=== PATIENT | female | born 1960 | race Caucasian/White ===

== ENCOUNTER 2018-11-16 07:35 | Inpatient (IN) | payer OTHER ==
[~2018-11-16] VITALS: Ht 147.3 cm; Wt 51.9 kg
[2018-11-16] VITALS (19 sets, daily range): BP systolic 16–113; BP diastolic 53–77; PULSE 62–77; RESP 11–19; Ht 147.3 cm; Wt 51.9 kg
[~2018-11-16 07:35] MED LIST: ASPI-1044 PO; ASPI-903 PO; CITA40TA6 PO; CLOP75TA28 PO; LEVO88TA3 PO; MAGN400T27 PO; TOPI25TA10 PO
[2018-11-16] MEDS ORDERED: DIAZEPAM 5 MG TAB PO PRN (09:06)
[2018-11-16] MEDS ORDERED: DIPHENHYDRAMINE 50 MG CAP PO PRN (09:07)
[2018-11-16] MEDS ORDERED: FAMOTIDINE 20 MG TAB PO PRN (09:07)
[2018-11-16] MEDS ORDERED: SOD CHLORIDE 0.45% 1,000 ML IV SCH (09:30)
[2018-11-16] MEDS ORDERED: FENTAnyl 50 MCG/ML VIAL ONE (09:31)
[2018-11-16] MEDS ORDERED: HEPARIN 1000 UNITS/ML 10 ML INJ ONE (09:31)
[2018-11-16] MEDS ORDERED: IODIXANOL LOCM 100 ML BTL ONE (09:31)
[2018-11-16] MEDS ORDERED: LIDOCAINE 1% (MDV) 20 ML INJ ONE (09:31)
[2018-11-16] MEDS ORDERED: MIDAZOLAM 1 MG/ML 2 ML INJ ONE (09:31)
[2018-11-16] MEDS ORDERED: VERAPAMIL 5 MG INJ ONE (09:32)
--- NOTE | 2018-11-16 10:29 | RADRPT ---
Vent Rate: 60 bpm RR Interval: 1008 msec SD Interval: 168 msec QRS Duration: 80 msec QT Interval: 427 msec QTC Interval: 425 msec P-R-T [place]: 44 - 68 - 65 degrees Sinus rhythm...normal P axis, V-rate 50- 99 Electronically Signed By: Clyde Alberts
[2018-11-16] MEDS ORDERED: BIVALIRUDIN 250MG /NS 50 ML 50 ML IVPB ONE (11:01)
[2018-11-16] MEDS ORDERED: ASPIRIN 325 MG TAB ONE (11:06)
[2018-11-16] MEDS ORDERED: CLOPIDOGREL 300 MG TAB ONE (11:06)
--- NOTE | 2018-11-16 11:13 | SIPON ---
Date/Time of Note Date/Time of Note DATE: 11/16/18 TIME: 11:12 Operative Report Preoperative Diagnosis 1.angina 2.abnl MPI Postoperative Diagnosis 1.obstructive cad s/p stent x 1 to prox LAD Operation/Procedure Performed 1.LHC 2.PTCA/stent x 1 to LAD prox Surgeon see signature line assistant office manager 1.Seferino Anesthesia: moderate sedation Estimated blood loss: minimal Transfusion Required none Specimen none Grafts/Implants none Complications none EDDI ABARCA Nov 16, 2018 11:13
[2018-11-16] MEDS ORDERED: ZOLPIDEM 5 MG TAB PO PRN (11:30)
[2018-11-16] MEDS ORDERED: OXYCODONE/ACETAMINOPHEN (5/325) TAB PO PRN (11:30)
[2018-11-16] MEDS ORDERED: AL HYDROX/MG HYDROX/SIMETH 30 ML CUP PO PRN (11:30)
[2018-11-16] MEDS ORDERED: ACETAMINOPHEN 325 MG TAB PO PRN (11:30)
[2018-11-16] MEDS ORDERED: morphine 2 MG INJ IV PRN (11:30)
[2018-11-16] MEDS ORDERED: ONDANSETRON 4 MG INJ IV PRN (11:30)
[2018-11-16] MEDS ORDERED: SOD CHLORIDE 0.9% 1,000 ML IV SCH (12:00)
--- NOTE | 2018-11-16 13:11 | RADRPT ---
Vent Rate: 65 bpm RR Interval: 928 msec NV Interval: 182 msec QRS Duration: 79 msec QT Interval: 423 msec QTC Interval: 439 msec P-R-T [place]: 80 - 71 - 77 degrees Sinus rhythm...normal P axis, V-rate 50- 99 Electronically Signed By: Clyde Alberts
--- NOTE | 2018-11-16 13:48 | HP ---
Date/Time of Note Date/Time of Note DATE: 11/16/18 TIME: 13:48 Assessment/Plan VTE Prophylaxis Pharmacological prophylaxis: NA/contraindicated Pharm contraindication: low risk/ambulating Lines/Catheters IV Catheter Type (from [facility]): Peripheral IV Urinary Cath still in place: No Assessment/Plan Hospital Course 58-year-old female with comorbidities including hyperlipidemia, diabetes mellitus type 2, CAD, hypothyroidism, carotid artery disease, depression, and anxiety who had an elective left heart catheterization with placement of a stent to proximal LAD and is being admitted to inpatient setting for further monitoring. 1. CAD. Status post left heart catheterization with placement of a stent to proximal LAD. Continue dual antiplatelet therapy. No statins because of severe allergies to statins. No MUSA inhibitors or beta blockers because of hypotension. 2. Diabetes mellitus type 2. Recently was taken off metformin. Random blood glucose within normal limits. Obtain hemoglobin A1c to evaluate the blood glucose control over the past few weeks. 3. Dyslipidemia. Patient intolerant to statins. May consider Repatha as per cardiology. 4. Carotid artery disease. Continue aspirin. Intolerance to statins. 5. Depression. Continue Cymbalta. 6. Anxiety. Continue Topamax. 7. Hypothyroidism. Resume Synthroid. Plan: The patient will be admitted to inpatient intensive care floor. The patient will be started on a low-cholesterol diet. The patient will be started on DVT prophylaxis. The patient will remain a full code. Activities will be as tolerated. The rest of the patient's management will be based on the clinical course, inputs from consultants, and the results of diagnostic studies. Based on the patient's clinical presentation, she most probably requires at least 1 midnight's stay for further management and evaluation of her clinical presentation. The patient was seen in collaboration with Dr. Randhawa. Result Diagram: 11/16/18 0820 11/16/18 0820 Results 24hrs Laboratory Tests Test 11/16/18 08:20 11/16/18 09:04 White Blood Count 6.2 Red Blood Count 4.67 Hemoglobin 14.3 Hematocrit 42.5 Mean Corpuscular Volume 91.0 Mean Corpuscular Hemoglobin 30.6 Mean Corpuscular Hemoglobin Concent 33.6 Red Cell Distribution Width 12.9 Platelet Count 310 Mean Platelet Volume 8.7 Immature Granulocytes % 0.200 Neutrophils % 50.1 Lymphocytes % 38.1 Monocytes % 8.8 Eosinophils % 2.3 Basophils % 0.5 Nucleated Red Blood Cells % 0.0 Immature Granulocytes # 0.010 Neutrophils # 3.1 Lymphocytes # 2.4 Monocytes # 0.5 Eosinophils # 0.1 Basophils # 0.0 Nucleated Red Blood Cells # 0.0 Prothrombin Time 12.8 Prothrombin Time Ratio 1.0 INR International Normalized Ratio 0.95 Activated Partial Thromboplast Time 28.0 Sodium Level 143 Potassium Level 4.3 Chloride Level 107 Carbon Dioxide Level 28 Anion Gap 8 Blood Urea Nitrogen 14 Creatinine 0.93 Est Glomerular Filtrat Rate mL/min > 60 Glucose Level 96 Calcium Level 10.3 H Triglycerides Level 163 H Cholesterol Level 222 H LDL Cholesterol, Calculated 160 HDL Cholesterol 29 L Cholesterol/HDL Ratio 7.6 Bedside Glucose 95 HPI/ROS Admit Date/Time Admit Date/Time Hx of Present Illness This is a 58-year-old female with past medical history of hyperlipidemia not on any statins because of allergic reactions, diabetes mellitus currently off metformin, CAD with a cardiac CT on 10/03/2018 showing severe high-grade stenosis of proximal LAD, carotid artery disease (bilateral less than 50% carotid stenosis on ultrasound done on 05/07/2018), hypothyroidism, mild tricuspid regurgitation, mild mitral valve regurgitation, depression, and anxiety who was brought in electively for left heart catheterization with placement of a stent x1 to proximal LAD. The patient is currently admitted to intensive care unit for further monitoring. ROS Constitutional: no complaints Eyes: no complaints ENT: no complaints Respiratory: no complaints Cardiovascular: no complaints Gastrointestinal: no complaints Genitourinary: no complaints Musculoskeletal: no complaints Skin: no complaints Neurologic: headache Endocrine: no complaints Lymphatic: no complaints Psychological: no complaints Immunologic: no complaints PMH/Family/Social Past Medical History 1. CAD. 2. Diabetes mellitus type 2, currently off medications. 3. Dyslipidemia. 4. Depression. 5. Anxiety. 6. Hypothyroidism. 7. Carotid artery disease. 8. Tricuspid regurgitation. 9. Mitral valve regurgitation. Medications Current Medications Diazepam (Valium) 5 mg ONCE PRN PO FISH SEINER TO CATH-LAB; Start 11/16/18 at 09:06; Stop 11/16/18 at 23:59 Famotidine (Pepcid) 20 mg ONCE PRN PO FISH SEINER TO CATH-LAB; Start 11/16/18 at 09:07; Stop 11/16/18 at 23:59 Diphenhydramine HCl (Benadryl) 50 mg ONCE PRN PO FISH SEINER TO CATH-LAB; Start 11/16/18 at 09:07; Stop 11/16/18 at 23:59 Aspirin (Halfprin) 81 mg DAILY PO ; Start 11/17/18 at 09:00 Clopidogrel Bisulfate (plaVIX) 75 mg DAILY PO ; Start 11/17/18 at 09:00 Acetaminophen (Tylenol Tab) 650 mg Q4H PRN PO MILD PAIN LEVEL 1-3; Start 11/16/18 at 11:30 Oxycodone/ Acetaminophen (Percocet (5/ 325)) 1 tab Q4H PRN PO REPORTED NON- CARDIAC PAIN 4-7; Start 11/16/18 at 11:30 Morphine Sulfate (morphine) 1 mg Q1H PRN IV PAIN; Start 11/16/18 at 11:30 Zolpidem Tartrate (Ambien) 5 mg HS MAY REPEAT X 1 PRN PO INSOMNIA; Start 11/16/18 at 11:30 Al Hydrox/Mg Hydrox/Simethicone (Mag-Al Plus) 30 ml Q4H PRN PO GASTROINTESTINAL UPSET; Start 11/16/18 at 11:30 Ondansetron HCl (Zofran Inj) 4 mg Q4H PRN IV NAUSEA AND/OR VOMITING Last administered on 11/16/18at 12:42; Admin Dose 4 MG; Start 11/16/18 at 11:30 Sodium Chloride 1,000 ml @ 75 mls/hr [id number] IV Last administered on 11/16/18at 12:13; Admin Dose 75 MLS/HR; Start 11/16/18 at 12:00; Stop 11/17/18 at 01:19 Coded Allergies: atorvastatin (Unverified Allergy, Unknown, 11/16/18) rosuvastatin (Unverified Allergy, Unknown, 11/16/18) simvastatin (Unverified Allergy, Unknown, 11/16/18) Past Surgical History 1. Left heart catheterization in 2011. Family History Significant Family History: heart disease, diabetes, hypertension Social History The patient lives at home with her family. She is a homemaker. Alcohol Use: none Smoking Status: Never smoker Drug Use: none Exam/Review of Systems Vital Signs Vitals Vital Signs Date Temp Pulse Resp B/P (MAP) Pulse Ox O2 O2 Flow FiO2 Time Delivery Rate 11/16/18 66 18 101/72 99 Room Air 13:00 (82) 11/16/18 97.8 12:00 Exam Exam General: Adequately build 58 year-old female lying in bed in no apparent distress. HEENT: Normocephalic, atraumatic. Eyes: Anicteric sclerae, conjunctivae clear. ENT: Nasal septum midline, oral mucosa moist. Neck supple, no JVD noticed. Respiratory: Bilaterally clear breath sounds. No use of accessory muscles of respiration. No adventitious breath sounds. Cardiovascular: S1, S2 heard. Regular rate and rhythm. Abdomen: Soft, nontender, and nondistended. Bowel sounds positive in all 4 quadrants. Genitourinary: Deferred. Extremities: No cyanosis, no clubbing, no edema. Peripheral pulses palpable. Right wrist TR band in place. Neurologic: Cranial nerves II through XII grossly intact. The patient is awake, alert, and oriented. Skin: Normal skin turgor. No skin rashes. LES SAM NP Nov 16, 2018 13:48
[2018-11-16] MEDS: MAGNESIUM OXIDE 400 MG TAB PO SCH (21:51)
[2018-11-16] MEDS: TOPIRAMATE 25 MG TAB PO SCH (21:51)
[2018-11-17] VITALS (9 sets, daily range): BP systolic 91–106; BP diastolic 58–69; PULSE 63–75; RESP 13–20
[2018-11-17] MEDS ORDERED: LEVOTHYROXINE 88 MCG TAB PO SCH (06:00)
--- NOTE | 2018-11-17 07:46 | CARRPT ---
DATE OF PROCEDURE: 11/16/2018 TYPE OF PROCEDURE: 1. Left heart catheterization. 2. Coronary angiography. 3. Percutaneous transluminal coronary angioplasty with placement of Synergy drug-eluting stent x1 to proximal ostial LAD, 3.5 x 12 mm. 4. Moderate conscious sedation. ATTENDING PHYSICIAN: Eddi Saha MD REFERRING PHYSICIAN: Dr. Mary Cantu. INDICATION: Chest pain refractory to medical therapy, positive stress test and positive cardiac CTA for high-grade stenosis. TYPE OF ANESTHESIA: Conscious and local. BRIEF HISTORY: Ms. Adair is a 58-year-old female with hypertension, dyslipidemia, diabetes mellitus, coronary artery disease, previously nonobstructive by prior catheterization, who presented with complaints of substernal chest and a cardiac stress test, positive ischemia. A cardiac CTA revealing a high-grade stenosis. The LAD has been brought to cardiac open hearth laborer in order to assess for possibility of significant obstructive coronary artery disease lending to symptoms of chest pain, positive stress test, positive cardiac CTA. PROCEDURE: After informed consent was obtained, the patient was brought to the [facility] cardiac catheterization lab where she was prepped and draped in the usual sterile fashion, 2% lidocaine was infiltrated right radial area in order to achieve adequate anesthesia. With modified Seldinger technique, the radial artery was cannulated and a 6-Guyanese arterial sheath was placed. A 6-Guyanese JL3.5 catheter was used to cannulate the left main coronary ostium. With contrast injection, multiple views of the left coronary arterial system were obtained. JL3.5 was removed over a guidewire and a JR4 was used to cannulate the right coronary arterial ostium. With contrast injection, multiple views of the right coronary system were obtained. JR4 was removed. A 6-Guyanese pigtail was passed into the ascending aorta and in LV. LVEDP was measured, pulled back across the aortic valve to assess for significant gradient, which there was not and removed. Subsequently, at this time, we moved directly into an interventional procedure. The patient had ACT checked and required additional 3000 units of heparin in order to achieve an adequate prerenal ACT in addition to that she had received with her radial cocktail. A Q3 guide was used to cannulate the left main coronary ostium. A Fast Food Supervisor 50 guidewire was passed distal to the lesion. The lesion was pretreated with a 3.0 x 12 mm balloon inflated to 14 atmospheres x2. This was removed and the lesion was stented with a 3.5 x 12 mm drug-eluting stent inflated at 14 atmospheres, post-dilated with the stent placement up to 16 atmospheres. Followup angiogram was obtained revealing excellent result, deployment of stent, TROY 3 flow throughout the vessel, no signs of complication including perforation or dissection. Subsequently, at this time, the initial guide and guidewires were removed. The patient's sheath was removed. TR band was applied to complete the procedure. There were no noted complications. FINDINGS: 1. Coronary angiography: Left main 4 mm short, no significant stenoses. Circumflex proximally is a 3 mm vessel, has an ostial 30% stenosis. The remainder of the circ is free from significant focal stenoses and it splits into an obtuse marginal and the Lcx continuation in the AV groove which is free from focal stenoses and the obtuse marginal which is a 2.5 mm vessel with no significant focal stenoses. The LAD proximally is a 3.5 mm vessel and has a 90% to 95% proximal stenosis. 2. LAD in the midportion has another focal approximately 40% stenosis. Remainder of the LAD thereafter is free from focal stenoses and surrounds the apex. 3. There is a proximal branching diagonal 2 mm vessel with no significant focal stenosis and a mid branching diagonal with a 30% ostial stenosis. 4. The right coronary proximally is a 3 mm vessel, has a 20% stenosis mid portion. Mid right coronary artery is free from significant focal stenosis. It gives off a 2.5 mm PDA with an ostial 30% stenosis and a 2.5 mm posterolateral branch with no significant focal stenoses. Measurement of left ventricular end-diastolic pressure of 14 to 16. No significant stenosis by gradient. TOTAL FLUOROSCOPY TIME: 9.5 minutes. TOTAL CONTRAST: 135 mL. IMPRESSION: 1. Single vessel obstructive coronary artery disease involving a high-grade stenosis. The patient's proximal ostial LAD, status post successful PTCA and stent placement x1 with drug-eluting stent. 2. High normal left heart filling pressures. 3. No significant stenosis by gradient. RECOMMENDATIONS: In light of procedure findings at this time, we would: 1. Maintain patient on Plavix 75 mg 1 tab p.o. daily, which has been loaded on 600 mg in the lab for at least 6 months. 2. Aspirin 81 mg 1 tab p.o. daily indefinitely. 3. Maximize medical management. 4. Aggressive risk factor reduction. 5. Patient will be admitted to the ICU for post-catheterization observation with probable discharge the following day. Dictated By: EDDI POLANCO/BIRDIE Conf#: [id number] DID#: [id number] CC: MARY CANTU MD;*EndCC* MTDD
[2018-11-17] MEDS ORDERED: CITALOPRAM 20 MG TAB PO SCH (09:00)
[2018-11-17] MEDS ORDERED: CLOPIDOGREL 75 MG TAB PO SCH (09:00)
[2018-11-17] MEDS ORDERED: ASPIRIN (EC) 81 MG TAB PO SCH (09:00)
[2018-11-17] MEDS: TOPIRAMATE 25 MG TAB PO SCH (09:49)
[2018-11-17] MEDS: MAGNESIUM OXIDE 400 MG TAB PO SCH (09:49)
--- NOTE | 2018-11-17 09:59 | PDOCDIS ---
Discharge Instructions CONDITION [id number] Patient Condition: [id number] Stable HOME CARE INSTRUCTIONS: [id number] Diet Instructions: [id number] Low Fat /Cholesterol FOLLOW UP/APPOINTMENTS Follow-up Plan Radha Cuevas DO Specialty: Cardiology Office Address [address] [place] [address] Office OTHER ORDERS: Other Orders: 1. Follow a low-cholesterol, low carbohydrate diet. 2. Resume home medications. 3. Start taking aspirin plus Plavix. Never stop taking aspirin and Plavix unless you talk to your capacitor pack press operator. 4. Resume activities as tolerated. 5. Please follow-up with your capacitor pack press operator as scheduled. 6. Please go to the nearest emergency room if you have any chest pain, significant shortness of breath, or any other unusual signs/symptoms. LES SAM NP Nov 17, 2018 09:59
--- NOTE | 2018-11-17 10:21 | CONS ---
Assessment/Plan Assessment/Plan Hospital Course (Demo Recall) Doing well post PCI yesterday. No CV complaints. Tele: SR 60-70s Subjective Gen: Denies fever, chills CV: Denies chest pain, palpitations, SOB, XAVIER, orthopnea, PND, edema, claudication Resp: Denies SOB or cough GI: Denies nausea, vomiting, diarrhea, constipation, abdominal pain Neuro: Denies lightheadedness, dizziness, presyncope/syncope Medications and allergies reviewed Past medical, surgical, family and social history reviewed. Objective General: WD/WN, NAD HEENT: NC/AT, PERRLA, dry mucus membranes CV: RRR, grade 1/6 systolic murmur, S1/S2, no S3/S4, no JVD, no carotid bruits, left radial access site looks good, 2+ radial pulse, no bleeding/hematoma/infection Respiratory: CTAB, no W/C/R, non-labored breathing GI: abdomen soft, NT/ND, normoactive bowel sounds Vascular: extremities are warm, 2+ radial/DT/PT pulses bilaterally, no edema Neuro: A/O x3, no focal deficits Assessment & Plan # CAD s/p PCI to ostial-prox LAD with WILLIAM x1 # HTN, well controlled # HLP, uncontrolled - intolerant to statins # DM2 # Hypothyroidism - continue Aspirin 81mg and Plavix 75mg daily - pt c/o myalgias and HAs with multiple statins so will hold at this time and readdress on f/u - maximized GDMT and aggressive risk factor modification - ok to dc home today - she has a f/u appointment with me early next week Consultation Date/Type/Reason Admit Date/Time Nov 16, 2018 at 14:11 Initial Consult Date Type of Consult Cardiology Date/Time of Note DATE: 11/17/18 TIME: 10:16 Exam/Review of Systems Vital Signs Vitals Vital Signs Date Temp Pulse Resp B/P (MAP) Pulse Ox O2 O2 Flow FiO2 Time Delivery Rate 11/17/18 73 17 91/58 (69) 99 Room Air 10:00 11/17/18 98.4 08:00 Intake and Output 11/16/18 11/16/18 11/17/18 1515:00 23:00 07:00 IntakeIntake Total 150 ml 225 ml OutputOutput Total 500 ml BalanceBalance 150 ml -275 ml Labs Result Diagram: 11/17/18 0515 11/17/18 0515 Results 24hrs Laboratory Tests Test 11/17/18 05:15 White Blood Count 5.7 Red Blood Count 4.09 L Hemoglobin 12.7 Hematocrit 37.7 Mean Corpuscular Volume 92.2 Mean Corpuscular Hemoglobin 31.1 Mean Corpuscular Hemoglobin Concent 33.7 Red Cell Distribution Width 13.1 Platelet Count 275 Mean Platelet Volume 9.3 Immature Granulocytes % 0.300 Neutrophils % 53.7 Lymphocytes % 33.9 Monocytes % 8.6 Eosinophils % 2.6 Basophils % 0.9 Nucleated Red Blood Cells % 0.0 Immature Granulocytes # 0.020 Neutrophils # 3.1 Lymphocytes # 1.9 Monocytes # 0.5 Eosinophils # 0.2 Basophils # 0.1 Nucleated Red Blood Cells # 0.0 Sodium Level 141 Potassium Level 4.1 Chloride Level 110 Carbon Dioxide Level 25 Anion Gap 6 Blood Urea Nitrogen 16 Creatinine 0.99 Est Glomerular Filtrat Rate mL/min 58 L Glucose Level 96 Calcium Level 9.3 Phosphorus Level 4.7 Magnesium Level 2.1 Medications Medications Current Medications Aspirin (Halfprin) 81 mg DAILY PO Last administered on 11/17/18at 09:49; Admin Dose 81 MG; Start 11/17/18 at 09:00 Clopidogrel Bisulfate (plaVIX) 75 mg DAILY PO Last administered on 11/17/18at 09:49; Admin Dose 75 MG; Start 11/17/18 at 09:00 Acetaminophen (Tylenol Tab) 650 mg Q4H PRN PO MILD PAIN LEVEL 1-3 Last administered on 11/16/18at 16:34; Admin Dose 650 MG; Start 11/16/18 at 11:30 Oxycodone/ Acetaminophen (Percocet (5/ 325)) 1 tab Q4H PRN PO REPORTED NON- CARDIAC PAIN 4-7; Start 11/16/18 at 11:30 Morphine Sulfate (morphine) 1 mg Q1H PRN IV PAIN; Start 11/16/18 at 11:30 Zolpidem Tartrate (Ambien) 5 mg HS MAY REPEAT X 1 PRN PO INSOMNIA; Start 11/16/18 at 11:30 Al Hydrox/Mg Hydrox/Simethicone (Mag-Al Plus) 30 ml Q4H PRN PO GASTROINTESTINAL UPSET; Start 11/16/18 at 11:30 Ondansetron HCl (Zofran Inj) 4 mg Q4H PRN IV NAUSEA AND/OR VOMITING Last administered on 11/16/18 12:42; Admin Dose 4 MG; Start 11/16/18 at 11:30 Citalopram Hydrobromide (Celexa) 40 mg DAILY PO ; Start 11/17/18 at 09:00 Levothyroxine Sodium (Synthroid) 88 mcg DAILY@06 PO Last administered on 11/17/18 09:49; Admin Dose 88 MCG; Start 11/17/18 at 06:00 Magnesium Oxide (Mag-Ox 400) 400 mg Q12 PO Last administered on 11/17/18 09:49; Admin Dose 400 MG; Start 11/16/18 at 21:00 Topiramate (Topamax) 25 mg BID PO Last administered on 11/17/18 09:49; Admin Dose 25 MG; Start 11/16/18 at 21:00 ERNIE ESTRADA DO Nov 17, 2018 10:21
--- NOTE | 2018-11-17 10:22 | DS ---
Date/Time of Note Date/Time of Note DATE: 11/17/18 TIME: 10:21 Discharge Summary Admission/Discharge Info Admit Date/Time Nov 16, 2018 at 14:11 Discharge Date/Time Discharge Diagnosis 1. CAD. Status post left heart catheterization with placement of a stent to p roximal LAD. 2. Diabetes mellitus type 2. Hemoglobin A1C 5.4. 3. Dyslipidemia. 4. Carotid artery disease. 5. Depression. 6. Anxiety. 7. Hypothyroidism. Patient Condition: Stable Consults 1. Preston Saha MD, Cardiology. Procedures CARDIOLOGY REPORT DATE OF PROCEDURE: 11/16/2018 TYPE OF PROCEDURE: 1. Left heart catheterization. 2. Coronary angiography. 3. Percutaneous transluminal coronary angioplasty with placement of Synergy drug-eluting stent x1 to proximal ostial LAD, 3.5 x 12 mm. 4. Moderate conscious sedation. ATTENDING PHYSICIAN: Preston Saha MD REFERRING PHYSICIAN: Dr. Kerwin Cantu. INDICATION: Chest pain refractory to medical therapy, positive stress test and positive cardiac CTA for high-grade stenosis. TYPE OF ANESTHESIA: Conscious and local. Hx of Present Illness This is a 58-year-old female with past medical history of hyperlipidemia not on any statins because of allergic reactions, diabetes mellitus currently off metformin, CAD with a cardiac CT on 10/03/2018 showing severe high-grade stenosis of proximal LAD, carotid artery disease (bilateral less than 50% carotid stenosis on ultrasound done on 05/07/2018), hypothyroidism, mild tricuspid regurgitation, mild mitral valve regurgitation, depression, and anxiety who was brought in electively for left heart catheterization with placement of a stent x1 to proximal LAD. The patient is currently admitted to intensive care unit for further monitoring. Hospital Course The patient was monitored in the intensive care unit. The patient was initiated on dual antiplatelet therapy. The patient was not started on any MUSA inhibitors or beta-blockers because of underlying hypotension. The patient has known history of hypotension. The patient was not started on any statins because of s ignificant intolerance to all statins. The patient has underlying diabetes mellitus type 2. She was recently taken off metformin. Her hemoglobin A1c was found to be 5.4. She was advised on a low carbohydrate diet. The patient has underlying dyslipidemia with elevated triglycerides, elevated total cholesterol, suboptimal LDL, and suboptimal HDL. As mentioned earlier, the patient has significant intolerance to statins. The patient has good outpatient cardiology follow-up. Will defer starting any statin/Repatha to cardiology. The patient also has carotid artery disease diagnosed with a carotid ultrasound. The patient will be medically optimized with aspirin and a low-cholesterol diet. As mentioned earlier, the patient is intolerant to statins. She has underlying depression. She was maintained on Cymbalta. The patient has underlying anxiety and frequent headaches. The patient was maintained on Topamax. The patient has a underlying hypothyroidism. The patient was maintained on Synthroid for the sa me. The patient had a stable hospital course. The patient was cleared by cardiology to be discharged home. The patient was given prescription for aspirin and Plavix for 30 days. The patient has outpatient follow-up with her marketing officer next week. Discharge Instructions 1. Follow a low-cholesterol, low carbohydrate diet. 2. Resume home medications. 3. Start taking aspirin plus Plavix. Never stop taking aspirin and Plavix unless you talk to your marketing officer. 4. Resume activities as tolerated. 5. Please follow-up with your marketing officer as scheduled. 6. Please go to the nearest emergency room if you have any chest pain, significant shortness of breath, or any other unusual signs/symptoms. The patient verbalized understanding of her discharge instructions. At this time I would like to thank all the consultants for seeing the patient, doing the necessary procedures, and providing clinical recommendations. The patient was seen in collaboration with Dr. Randhawa. Home Meds Active Scripts Clopidogrel Bisulfate (Clopidogrel) 75 Mg Tablet, 75 MG PO DAILY, #30 TAB Prov:LES SAM LINEN MANAGER 11/17/18 Aspirin Delayed Release (Aspirin Delayed Release) 81 Mg Tablet., 81 MG PO DAILY, #30 TAB Prov:LES SAM LINEN MANAGER 11/17/18 Reported Medications Aspirin* (Aspirin* Chew) 81 Mg Tab.chew, 81 MG PO DAILY, TAB.CHEW 11/16/18 Topiramate* (Topiramate*) 25 Mg Tablet, 25 MG PO BID 11/16/18 Citalopram Hydrobromide* (Citalopram Hydrobromide*) 40 Mg Tablet, 40 MG PO DAILY 11/16/18 Magnesium Oxide* (Mag-Oxide*) 400 Mg Tablet, 400 MG PO Q12 11/16/18 Levothyroxine Sodium* (Levothyroxine Sodium*) 88 Mcg Tablet, 88 MCG PO QAM 11/16/18 Follow-up Plan Radha Cuevas DO Specialty: Cardiology Office Address [id number] [place] [address] Office Primary Care Provider Not On Staff Doctor Time spent on discharge: > 30 minutes Pending Labs Laboratory Tests Test 11/17/18 05:15 White Blood Count 5.7 10^3/ul (4.8-10.8) Red Blood Count 4.09 10^6/ul (4.20-5.40) Hemoglobin 12.7 g/dl (12.0-16.0) Hematocrit 37.7 % (37.0-47.0) Mean Corpuscular Volume 92.2 fl (82.0-101.0) Mean Corpuscular Hemoglobin 31.1 pg (29.0-33.0) Mean Corpuscular Hemoglobin Concent 33.7 g/dl (32.0-37.0) Red Cell Distribution Width 13.1 % (11.5-14.5) Platelet Count 275 10^3/UL (140-415) Mean Platelet Volume 9.3 fl (7.4-10.4) Immature Granulocytes % 0.300 % (0.001-0.429) Neutrophils % 53.7 % (39.0-77.0) Lymphocytes % 33.9 % (15.0-51.0) Monocytes % 8.6 % (0.0-11.0) Eosinophils % 2.6 % (0.0-7.0) Basophils % 0.9 % (0.0-2.0) Nucleated Red Blood Cells % 0.0 /100WBC (0.0-0.0) Immature Granulocytes # 0.020 10^3/ul (0.0-0.031) Neutrophils # 3.1 10^3/ul (1.6-7.5) Lymphocytes # 1.9 10^3/ul (0.8-2.9) Monocytes # 0.5 10^3/ul (0.3-0.9) Eosinophils # 0.2 10^3/ul (0.0-0.5) Basophils # 0.1 10^3/ul (0.0-0.1) Nucleated Red Blood Cells # 0.0 10^3/ul (0.0-0.0) Sodium Level 141 mmol/L (135-144) Potassium Level 4.1 mmol/L (3.5-5.1) Chloride Level 110 mmol/L (97-110) Carbon Dioxide Level 25 mmol/L (21-31) Anion Gap 6 (5-13) Blood Urea Nitrogen 16 mg/dl (7-20) Creatinine 0.99 mg/dl (0.44-1.00) Est Glomerular Filtrat Rate mL/min 58 mL/min (>60) Glucose Level 96 mg/dl (70-220) Calcium Level 9.3 mg/dl (8.4-10.2) Phosphorus Level 4.7 mg/dl (2.5-4.9) Magnesium Level 2.1 mg/dl (1.7-2.5) LES SAM NP Nov 17, 2018 10:22
--- NOTE | 2018-11-18 13:02 | RADRPT ---
Vent Rate: 64 bpm RR Interval: 932 msec OR Interval: 177 msec QRS Duration: 82 msec QT Interval: 417 msec QTC Interval: 432 msec P-R-T [place]: 63 - 66 - 61 degrees Sinus rhythm...normal P axis, V-rate 50- 99 Electronically Signed By: Clyde Alberts
== END 2018-11-17 11:20 | disposition home or self-care (01) | DRG 247 ==
LOC: SDS 07:35 → ICU 11:40 → SDS 14:11 → ICU 14:11
PROVIDERS: ADMIT Internal Medicine; ATTEND Internal Medicine
PROC: B211YZZ Fluoroscopy of Multiple Coronary Arteries using Other Contrast (ICD-10-PCS; 2018-11-16)
PROC: 027034Z Dilation of Coronary Artery, One Artery with Drug-eluting Intraluminal Device, Percutaneous Approach (ICD-10-PCS; principal; 2018-11-16 09:30)
PROC: 4A023N7 Measurement of Cardiac Sampling and Pressure, Left Heart, Percutaneous Approach (ICD-10-PCS; 2018-11-16 09:30)
DX: I25.119 Atherosclerotic heart disease of native coronary artery with unspecified angina pectoris (principal); E11.9 Type 2 diabetes mellitus without complications; E78.5 Hyperlipidemia, unspecified; E03.9 Hypothyroidism, unspecified; F41.9 Anxiety disorder, unspecified; F32.9 Major depressive disorder, single episode, unspecified; I65.23 Occlusion and stenosis of bilateral carotid arteries; Z79.84 Long term (current) use of oral hypoglycemic drugs
CPT/HCPCS: 71045; 80048; 80061; 82962; 83036; 83735; 84100; 85025; 85610; 85730; 87081; 92928; 93005; 93458; C1725; C1769; C1874; C1887; J0583; J1644; J2250; J2405; J3010; J7030; Q9967